=== PATIENT | female | born 1990 | race Caucasian/White ===

== ENCOUNTER 2017-03-05 20:27 | Emergency (ER) | payer SELFPAY ==
[2017-03-05] MEDS ORDERED: Sodium Chloride 0.9% 10 ML Syringe FLUSH PRN (20:35)
[2017-03-05] MEDS ORDERED: Sodium Chloride 0.9% 2.5 ML Syringe FLUSH PRN (20:35)
[2017-03-05] MEDS ORDERED: Ketorolac 30 MG/ML SDV IVPUSH ONE (20:35)
[2017-03-05] MEDS ORDERED: LORazepam 2 MG/ML MDV IVPUSH ONE (20:40)
--- NOTE | 2017-03-05 20:47 | EDM.PDOC ---
ED HPI RENAL/ - General Chief Complaint: Abdominal Pain Stated Complaint: BACK PAIN/abdominal pain Time Seen by Provider: 03/05/17 20:29 Source of Information: Reports: Patient History Limitations: Reports: No limitations - History of Present Illness INITIAL COMMENTS - FREE TEXT/NARRATIVE: HISTORY AND PHYSICAL: History of present illness: [27-year-old female with a history of chronic intermittent low back pain and no prior abdominal history or prior kidney stone now presents emergency room complaining of left low back pain over the last hour and a half. Patient states the pain is "radiating to her abdomen. "She never had a kidney stone. Denies any change in her bowel and bladder habits. She does not have any abdominal tenderness or pain in the abdomen with movement. Pain is worse with movement. Denies spinal pain. No fevers chills sweats or shaking chills. Patient denies as she is currently on her period and period is normal for her.] Patient states both hands and feet are tingling and her breathing rate represents slight tachypnea on arrival with an obvious contributory component of anxiety. Review of systems: As per history of present illness and below otherwise all systems reviewed and negative. Past medical history: As per history of present illness and as reviewed below otherwise noncontributory. Surgical history: As per history of present illness and as reviewed below otherwise noncontributory. Social history: No reported history of drug or alcohol abuse. Family history: As per history of present illness and as reviewed below otherwise noncontributory. Physical exam: Anxious-appearing obese patient alert and communicative conversing with her eyes closed. Mild tachypnea HEENT: Atraumatic, normocephalic, pupils reactive, negative for conjunctival pallor or scleral icterus, mucous membranes moist, throat clear, neck supple, nontender, trachea midline. Lungs: Clear to auscultation, breath sounds equal bilaterally, chest nontender. Heart: S1S2, regular, negative for clicks, rubs, or JVD. Abdomen: Soft, nondistended, nontender. Negative for masses or hepatosplenomegaly. Negative for costovertebral tenderness. Pelvis: Stable nontender. Left lumbar mild soft tissue tenderness. No CVA tenderness. No spinal tenderness. No skin changes. Nontender abdomen Genitourinary: Deferred. Rectal: Deferred. Extremities: Atraumatic, negative for cords or calf pain. Neurovascular unremarkable. Neuro: Awake, alert, oriented. Cranial nerves grossly unremarkable. Cerebellum unremarkable. Motor and sensory unremarkable throughout. Exam nonfocal. Diagnostics: [CT urinary tract without] Therapeutics: [Toradol given for back pain suspected to be musculoskeletal and Ativan administered or obvious anxiety manifestions] Impression: [Low back pain Hyperventilation syndrome Anxiety] Plan: [Patient's pain control treatment signs and symptoms consistent with suspected ureterolithiasis and ureteral colic. CT with 1 mm stone at UVJ. Patient smiling and asymptomatic on reevaluation after CT consistent with suspected passage into the bladder of this very small stone. No evidence of UTI. No further workup or treatment indicated. Vital signs stable. Patient agrees with outpatient followup and strict return precautions given] Definitive disposition and diagnosis as appropriate pending reevaluation and review of above. - Related Data Allergies/ADRs: Allergies Allergy/AdvReac Type Severity Reaction Status Date / Time No Known Allergies Allergy Verified 03/05/17 20:33 Home Meds: Home Meds Butalb/Acetaminophen/Caffeine [Gmeysc-[id number] 50-325-40] 4 tab PO QID 02/16 [History] Cholecalciferol (Vitamin D3) [Optimal D3] 50,000 unit PO DAILY 03/05/17 [History ] NIFEdipine [Nifedipine ER] 30 mg PO DAILY 03/05/17 [History] Norethindrone AC-Eth Estradiol [Junel 1 mg-20 Mcg Tablet] 1 tab PO DAILY [History] Omeprazole Magnesium [Prilosec Otc] 20 mg PO DAILY 03/05/17 [History] Promethazine [Phenergan] 25 mg PO Q4H 03/05/17 [History] SUMAtriptan Succinate [Imitrex] 100 mg PO DAILY 03/05/17 [History] Spironolactone [Aldactone] 50 mg PO BID 03/05/17 [History] metFORMIN HCl [Metformin HCl] 1,000 mg PO BID 03/05/17 [History] Social & Family History - Tobacco Use Smoking Status *Q: Never Smoker - Recreational Drug Use Recreational Drug Use: No ED ROS GENERAL - Review of Systems Review Of Systems: See Below (Per history of present illness) ED EXAM, RENAL/ - Physical Exam Exam: See Below (Per history of present illness) Course - Vital Signs Last Recorded V/S: Last Vital Signs Temp 36.4 C 03/05/17 23:04 Pulse 76 03/05/17 23:04 Resp 18 03/05/17 23:04 BP 119/72 03/05/17 23:04 Pulse Ox 100 03/05/17 23:04 - Orders/Labs/Meds Orders: Active Orders 24 hr Category Date Time Status Abdomen Pelvis wo Cont [CT] Stat Exams 03/05/17 20:36 Taken Peripheral IV Insertion Adult [OM.PC] Stat Oth 03/05/17 20:35 Ordered Labs: Laboratory Tests 03/05/17 03/05/17 03/05/17 Range/Units 20:37 20:37 21:00 WBC 12.45 H (4.0-11.0) K/uL RBC 4.77 (4.30-5.90) M/uL Hgb 13.2 (12.0-16.0) g/dL Hct 40.1 (36.0-46.0) % MCV 84.1 (80.0-98.0) fL MCH 27.7 (27.0-32.0) pg MCHC 32.9 (31.0-37.0) g/dL RDW Std Deviation 38.4 (28.0-62.0) fl RDW Coeff of Mariola 13 (11.0-15.0) % Plt Count 426 H (150-400) K/uL MPV 8.80 (7.40-12.00) fL Neut % (Auto) 47.4 L (48.0-80.0) % Lymph % (Auto) 41.7 H (16.0-40.0) % [place] % (Auto) 9.5 (0.0-15.0) % Eos % (Auto) 1.1 (0.0-7.0) % Baso % (Auto) 0.3 (0.0-1.5) % Neut # (Auto) 5.9 H (1.4-5.7) K/uL Lymph # (Auto) 5.2 H (0.6-2.4) K/uL [place] # (Auto) 1.2 H (0.0-0.8) K/uL Eos # (Auto) 0.1 (0.0-0.7) K/uL Baso # (Auto) 0.0 (0.0-0.1) K/uL Nucleated RBC % 0.0 /100WBC Nucleated RBCs # 0 K/uL Sodium 141 (136-146) mmol/L Potassium 3.5 (3.5-5.1) mmol/L Chloride 107 (98-110) mmol/L Carbon Dioxide 20 L (21-31) mmol/L BUN 12 (6.0-23.0) mg/dL Creatinine 0.8 (0.6-1.5) mg/dL Est Cr Clr Drug Dosing 88.93 mL/min Estimated GFR (MDRD) > 60.0 ml/min Glucose 102 (60-110) mg/dL Calcium 9.6 (8.8-10.8) mg/dL Total Bilirubin 0.4 (0.1-1.5) mg/dL AST 27 (5-40) IU/L ALT 56 H (8-54) IU/L Alkaline Phosphatase 113 (40-150) Total Protein 7.9 (6.0-8.0) g/dL Albumin 4.2 (3.5-5.0) g/dL Globulin 3.7 H (2.0-3.5) g/dL Albumin/Globulin Ratio 1.1 L (1.3-2.8) Lipase 28 (7-80) U/L Urine Color Urine Appearance Urine pH (5.0-8.0) Ur Specific [place] (1.001-1.035) Urine Protein (NEGATIVE) mg/dL Urine Glucose (UA) (NEGATIVE) mg/dL Urine Ketones (NEGATIVE) mg/dL Urine Occult Blood (NEGATIVE) Urine Nitrite (NEGATIVE) Urine Bilirubin (NEGATIVE) Urine Ictotest Urine Urobilinogen (<2.0) EU/dL Ur Leukocyte Esterase (NEGATIVE) Urine RBC (0-2/HPF) Urine WBC (0-5/HPF) Ur Epithelial Cells (NONE-FEW) Urine Bacteria (NEGATIVE) Urine HCG, Qual NEGATIVE (NEGATIVE) 03/05/17 Range/Units 22:55 WBC (4.0-11.0) K/uL RBC (4.30-5.90) M/uL Hgb (12.0-16.0) g/dL Hct (36.0-46.0) % MCV (80.0-98.0) fL MCH (27.0-32.0) pg MCHC (31.0-37.0) g/dL RDW Std Deviation (28.0-62.0) fl RDW Coeff of Mariola (11.0-15.0) % Plt Count (150-400) K/uL MPV (7.40-12.00) fL Neut % (Auto) (48.0-80.0) % Lymph % (Auto) (16.0-40.0) % [place] % (Auto) (0.0-15.0) % Eos % (Auto) (0.0-7.0) % Baso % (Auto) (0.0-1.5) % Neut # (Auto) (1.4-5.7) K/uL Lymph # (Auto) (0.6-2.4) K/uL [place] # (Auto) (0.0-0.8) K/uL Eos # (Auto) (0.0-0.7) K/uL Baso # (Auto) (0.0-0.1) K/uL Nucleated RBC % /100WBC Nucleated RBCs # K/uL Sodium (136-146) mmol/L Potassium (3.5-5.1) mmol/L Chloride (98-110) mmol/L Carbon Dioxide (21-31) mmol/L BUN (6.0-23.0) mg/dL Creatinine (0.6-1.5) mg/dL Est Cr Clr Drug Dosing mL/min Estimated GFR (MDRD) ml/min Glucose (60-110) mg/dL Calcium (8.8-10.8) mg/dL Total Bilirubin (0.1-1.5) mg/dL AST (5-40) IU/L ALT (8-54) IU/L Alkaline Phosphatase (40-150) Total Protein (6.0-8.0) g/dL Albumin (3.5-5.0) g/dL Globulin (2.0-3.5) g/dL Albumin/Globulin Ratio (1.3-2.8) Lipase (7-80) U/L Urine Color DARK YELLOW Urine Appearance CLOUDY Urine pH 6.0 (5.0-8.0) Ur Specific [place] 1.025 (1.001-1.035) Urine Protein 100 (NEGATIVE) mg/dL Urine Glucose (UA) NEGATIVE (NEGATIVE) mg/dL Urine Ketones NEGATIVE (NEGATIVE) mg/dL Urine Occult Blood LARGE H (NEGATIVE) Urine Nitrite NEGATIVE (NEGATIVE) Urine Bilirubin SMALL H (NEGATIVE) Urine Ictotest NEGATIVE Urine Urobilinogen 0.2 (<2.0) EU/dL Ur Leukocyte Esterase NEGATIVE (NEGATIVE) Urine RBC 40-50 (0-2/HPF) Urine WBC 0-3 (0-5/HPF) Ur Epithelial Cells OCCASIONAL (NONE-FEW) Urine Bacteria FEW (NEGATIVE) Urine HCG, Qual (NEGATIVE) Meds: Medications Discontinued Medications Generic Name Dose Route Start Last Admin Trade Name Freq PRN Reason Stop Dose Admin Sodium Chloride 1,000 mls @ 999 mls/hr 03/05/17 22:07 03/05/17 22:09 Normal Saline IV 03/05/17 23:07 999 mls/hr .Bolus ONE Administration Ketorolac Tromethamine 30 mg 03/05/17 20:35 03/05/17 20:42 Toradol IVPUSH 03/05/17 20:36 30 mg ONETIME ONE Administration Lorazepam 0.5 mg 03/05/17 20:40 03/05/17 20:46 Ativan IVPUSH 03/05/17 20:41 0.5 mg ONETIME ONE Administration Ondansetron HCl 4 mg 03/05/17 21:19 03/05/17 21:22 Zofran IVPUSH 03/05/17 21:20 4 mg ONETIME ONE Administration Sodium Chloride 10 ml 03/05/17 20:35 03/05/17 20:42 Saline Flush FLUSH 10 ml ASDIRECTED PRN Administration Keep Vein Open Sodium Chloride 2.5 ml 03/05/17 20:35 03/05/17 20:43 Saline Flush FLUSH 2.5 ml ASDIRECTED PRN Administration Keep Vein Open Departure - Departure Time of Disposition: 23:38 Disposition: Home, Self-Care 01 Condition: good Clinical Impression: Ureterolithiasis, Ureteral colic Instructions: Renal Colic, [id number], Kidney Stones, [id number] Referrals: PCP,None [Primary Care Provider] - Forms: ED Department Discharge Additional Instructions: Your history and findings today suggested that you were passing a kidney stone and this was confirmed by your CAT scan. You have no signs of urine infection in your kidney stones was 1 mm and early in your bladder at the time of imaging. Given that this is a very small stone in your symptoms have resolved is very likely that the stone has passed into your bladder and will pass out your urethra without any difficulty. Drink plenty of fluids and take 800 mg of ibuprofen every 6 hours. Followup with your Dr. for reevaluation and referral to urology as needed. Your CAT scan showed an incidental finding could be the result of something called medullary nephrocalcinosis or it could have just been a result of the concentrated urine which he clearly had on arrival to the emergency department you've been given a copy of your CAT scan to followup and discuss this with your primary care Dr. return immediately for new severe or worsening symptoms - My Orders Last 24 Hours: My Active Orders 03/05/17 20:35 Peripheral IV Insertion Adult [OM.PC] Stat 03/05/17 20:36 Abdomen Pelvis wo Cont [CT] Stat - Assessment/Plan Last 24 Hours: My Active Orders 03/05/17 20:35 Peripheral IV Insertion Adult [OM.PC] Stat 03/05/17 20:36 Abdomen Pelvis wo Cont [CT] Stat
[2017-03-05 21:11] LABS: CHLORIDE,CL 107 mmol/L (98-110); SODIUM,NA 141 mmol/L (136-146)
[2017-03-05] MEDS ORDERED: Ondansetron 4 MG/2 ML SDV IVPUSH ONE (21:19)
[2017-03-05] MEDS ORDERED: Sodium Chloride 0.9% 1,000 ML IV ONE (22:07)
[2017-03-05 23:05] VITALS: BP 119/72
--- NOTE | 2017-03-06 16:12 | CT ---
EXAM DATE: 03/05/17 PATIENT'S AGE: 27 Patient: JESUS JEFEFRSON Facility: [place], [place] Site . Site : 1992 Study: CT Abdomen/Pelvis WO CONT [id number]/4/2017 9:50:54 PM Ordering Physician: Arturo Alexis Final Report: INDICATION: ABD PAIN, N/V TECHNIQUE: CT abdomen and pelvis without contrast. COMPARISON: None FINDINGS: Lower chest: Unremarkable. Liver: Unremarkable. Spleen: Unremarkable. Pancreas: Unremarkable. Gallbladder and bile ducts: Cholecystectomy. Kidneys: 1 mm calculus just proximal to the left ureterovesicular junction with minimal left-sided hydroureter/hydronephrosis. Increased attenuation within the renal pyramids bilaterally. Adrenal glands: Unremarkable. GI tract: Unremarkable. Appendix is normal. Vascular structures: Unremarkable. Lymph nodes: Unremarkable. Miscellaneous: Unremarkable. No free air or significant free fluid. Pelvic Organs: Unremarkable. Bones: Unremarkable for age. IMPRESSION: 1 mm calculus just proximal to the left ureterovesicular junction with minimal left-sided hydroureter/hydronephrosis. Increased attenuation within the renal pyramids bilaterally. 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 Alternatively, this could represent concentrated urine. Dictated by Reynaldo Song MD @ 03/05/2017 10:02:10 PM Dictated by: Reynaldo Song MD @ 03/05/2017 22:05:34 (Electronic Signature) Report Signed by Proxy. [facility]
== END 2017-03-05 23:59 | disposition home or self-care (01) ==
LOC: MW.ED 20:27
DX: N13.2 Hydronephrosis with renal and ureteral calculous obstruction (principal); F45.8 Other somatoform disorders; Z79.899 Other long term (current) drug therapy
CPT/HCPCS: 74176; 80053; 81001; 81025; 83690; 85025; 96361; 96374; 96375; 99284; J1885; J2060; J2405; J7040

== ENCOUNTER → 2017-03-06 | Outpatient (CLI) | payer BC ==
--- NOTE | 2017-03-06 15:06 | CT ---
EXAMINATION: Non contrast CT head. Coronal and sagittal reformats. HISTORY: Migraine FINDINGS: No evidence of intra or extra axial hemorrhage, mass, midline shift, hydrocephalus or edema. No hypoattenuation changes in the major vascular territories to suggest acute infarct. No abnormal intracranial calcifications are detected. No evidence of substantial vascular calcifica tions. Paranasal sinuses and mastoid air cells are well aerated without substantial findings. The orbits a nd globes are symmetric. Pituitary fossa appears unremarkable. Calvarium is intact. No evidence of skull fracture. IMPRESSION: No acute intracranial findings.
== END ==
LOC: MW.DI 13:47
PROVIDERS: ATTEND Family Medicine
DX: G43.909 Migraine, unspecified, not intractable, without status migrainosus (principal)
CPT/HCPCS: 70450; 70450-26

== ENCOUNTER 2017-09-10 11:47 | Day surgery (SDC) | payer BC ==
[~2017-09-10 11:47] MED LIST: Lactated Ringers 1,000 ML IV SCH
[2017-09-10] MEDS ORDERED: Lidocaine 2% 5 ML SDV ONE (11:51)
[2017-09-10] MEDS ORDERED: fentaNYL 100 MCG/2 ML SDV ONE (11:51)
[2017-09-10] MEDS ORDERED: Propofol 200 MG/20 ML SDV ONE ×2 (11:51→13:36)
[2017-09-10] MEDS ORDERED: Midazolam 1 MG/ML 2 ML SDV ONE (11:52)
--- NOTE | 2017-09-10 12:01 | PCM.PREANE ---
Preanesthetic Assessment - Anesthesia/Transfusion/Family Hx Anesthesia History: Prior Anesthesia Without Reaction Family History of Anesthesia Reaction: No Transfusion History: No Prior Transfusion(s) - Review of Systems General: No Symptoms Pulmonary: No Symptoms Cardiovascular: No Symptoms Gastrointestinal: No Symptoms Neurological: No Symptoms Other: Reports: None - Physical Assessment NPO Status Date: 09/09/17 O2 Sat by Pulse Oximetry: 98 Respiratory Rate: 16 Vital Signs: Last Vital Signs Temp 36.5 C 09/10/17 11:52 Pulse 80 09/10/17 11:52 Resp 16 09/10/17 11:52 BP 114/65 09/10/17 11:52 Pulse Ox 98 09/10/17 11:52 ASA Class: 2 Mental Status: Alert & Oriented x3 Airway Class: Mallampati = 2 Dentition: Reports: Normal Dentition ROM/Head Extension: Full Lungs: Clear to Auscultation, Normal Respiratory Effort Cardiovascular: Regular Rate, Regular Rhythm - Allergies Allergies/Adverse Reactions: Allergies Allergy/AdvReac Type Severity Reaction Status Date / Time No Known Allergies Allergy Verified 09/07/17 12:17 - Acknowledgements Anesthesia Type Planned: MAC Pt an Appropriate Candidate for the Planned Anesthesia: Yes Alternatives and Risks of Anesthesia Discussed w Pt/Guardian: Yes Pt/Guardian Understands and Agrees with Anesthesia Plan: Yes Additional Comments: PMH: PCOS, ADD, A Rhinitis PreAnesthesia Questionnaire HEENT History: Reports: Allergic Rhinitis Cardiovascular History: Reports: None Respiratory History: Reports: None Gastrointestinal History: Reports: GERD Genitourinary History: Reports: Renal Calculus Other Genitourinary History: kidney stones in March, [employer] 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: Reports: Polycystic Ovaries Other OB/BYN History: takes Metformin for PCOS Musculoskeletal History: Reports: Arthritis, Back Pain, Chronic, Fracture Other Musculoskeletal History: hx of fx left arm Neurological History: Reports: Migraines, Other (See Below) Other Neuro History: hx of cluster headaches, hx of motion sickness Psychiatric History: Reports: ADHD Other Psychiatric History: does not take medication Endocrine/Metabolic History: Reports: Obesity/BMI 30+ Hematologic History: Reports: None Oncologic (Cancer) History: Reports: None Dermatologic History: Reports: None - Infectious Disease History Infectious Disease History: Reports: None - Past Surgical History HEENT Surgical History: Reports: Oral Surgery Other HEENT Surgeries/Procedures: wisdom teeth GI Surgical History: Reports: Cholecystectomy - SUBSTANCE USE Smoking Status *Q: Never Smoker Recreational Drug Use History: No - HOME MEDS Home Medications: Home Meds Promethazine [Phenergan] 25 mg PO Q4H PRN 03/05/17 [History] metFORMIN HCl [Metformin HCl] 500 mg PO BID 03/05/17 [History] ZOLMitriptan [Zolmitriptan Odt] 1 tab SL ASDIRECTED PRN 09/07/17 [History] - CURRENT (IN HOUSE) MEDS Current Meds: Current Medications Lactated Ringer's (Ringers, Lactated) 1,000 mls @ 125 mls/hr IV ASDIRECTED PAWAN Last Admin: 09/10/17 11:56 Dose: 125 mls/hr Discontinued Medications Fentanyl (Sublimaze) Confirm Administered Dose 100 mcg .ROUTE .STK-MED ONE Stop: 09/10/17 11:52 Lidocaine (Xylocaine-Mpf 2%) Confirm Administered Dose 5 ml .ROUTE .STK-MED ONE Stop: 09/10/17 11:52 Midazolam HCl (Versed 1 Mg/Ml) Confirm Administered Dose 2 mg .ROUTE .STK-MED ONE Stop: 09/10/17 11:53 Propofol (Diprivan 20 Ml) Confirm Administered Dose 400 mg .ROUTE .STK-MED ONE Stop: 09/10/17 11:52
--- NOTE | 2017-09-10 14:00 | PCM.OPNOTE ---
- General Post-Op/Procedure Note Date of Surgery/Procedure: 09/10/17 Operative Procedure(s): egd w bx Findings: see dict [id number] Pre Op Diagnosis: gerd Post-Op Diagnosis: same Anesthesia Technique: Moderate Sedation Primary Surgeon: Cornelius Matamoros Pathology: egd bx Complications: None Condition: Good
[2017-09-10 14:32] VITALS: BP 104/60
--- NOTE | 2017-09-10 14:34 | PCM.POSTAN ---
POST ANESTHESIA ASSESSMENT - MENTAL STATUS Mental Status: Alert, Oriented - RESPIRATORY Respiratory Status: Respiratory Rate WNL, Airway Patent, O2 Saturation Stable - CARDIOVASCULAR CV Status: Pulse Rate WNL, Blood Pressure Stable - GASTROINTESTINAL GI Status: No Symptoms - POST OP HYDRATION Hydration Status: Adequate & Stable
--- NOTE | 2017-09-10 14:35 | PCM48HPAN ---
Post Anesthesia Note - EVALUATION WITHIN 48HRS OF ANESTHETIC Vital Signs in Normal Range: Yes Patient Participated in Evaluation: Yes Respiratory Function Stable: Yes Airway Patent: Yes Cardiovascular Function Stable: Yes Hydration Status Stable: Yes Pain Control Satisfactory: Yes Nausea and Vomiting Control Satisfactory: Yes Mental Status Recovered: Yes
--- NOTE | 2017-09-10 21:11 | OR ---
SURGEON: Cornelius Matamoros MD DATE OF PROCEDURE: 09/10/2017 PREOPERATIVE DIAGNOSIS: Acid reflux. POSTOPERATIVE DIAGNOSIS: Acid reflux. PROCEDURES PERFORMED: EGD with biopsy. DESCRIPTION OF PROCEDURE: EGD: The patient was taken to the endoscopy room, and with the [employer] CONSULTANT, Diprivan was administered. A well-lubricated EGD scope was gently inserted through the oropharynx, down the esophagus, passing through the gastroesophageal junction, into the stomach. The mucosa was examined upon the passage. Any etiology will be noted. Once in the stomach, we continued to advance to the distal antrum, passed through the pylorus into the second portion of the duodenum. Again, the mucosa was examined for any abnormality and etiology. The scope was then retrieved back to the stomach and then retroflexed to look at the fundus of the stomach. If a biopsy was indicated, we will biopsy the antrum, body, and gastroesophageal junction. The air will be sucked out while the scope is retrieved to reduce the patient's discomfort. The patient tolerated the procedure well. There were no intraoperative complications. Dr. Matamoros was present through the whole procedure. Prior to surgery, a time-out had been called, the patient identified, procedure identified and antibiotic administered. FINDINGS: 1. The patient is easily sedated with LE[employer] CONSULTANT and Diprivan. The patient is soundly snoring. 2. The patient's oropharynx and proximal esophagus are free of disease. No stricture, ulceration, or inflammation. Distal esophagus at GE junction at 40 shows very minimal salmon-color change. Suggests very minimal acid reflux. Stomach rugae are normal in appearance, and there is no bile, food, blood. Antrum is a little bit inflamed, very mild, and duodenum was grossly normal. 3. The scope was retrieved back to the stomach. On retroflexed look at the fundus of stomach, there is no hiatal hernia. Biopsy done at antrum, body, and GE junction at 40, and sucked out the air while scope pulling out. NONA / MARICEL /[id number]
== END 2017-09-10 14:52 | disposition home or self-care (01) ==
LOC: MW.SDS 11:47
PROVIDERS: ATTEND Surgery
DX: K29.50 Unspecified chronic gastritis without bleeding (principal); K21.0 Gastro-esophageal reflux disease with esophagitis; E66.9 Obesity, unspecified; E28.2 Polycystic ovarian syndrome; Z79.84 Long term (current) use of oral hypoglycemic drugs; Z68.30 Body mass index [BMI] 30.0-30.9, adult; Z90.49 Acquired absence of other specified parts of digestive tract; Z79.899 Other long term (current) drug therapy; Z98.890 Other specified postprocedural states
CPT/HCPCS: 43239; 81025; J2250; J3010; J7120; 88305; 88312; J2704

== ENCOUNTER 2018-06-26 19:23 | Emergency (ER) | payer BC, OTHER ==
--- NOTE | 2018-06-26 19:37 | EDM.PDOC ---
ED HPI GENERAL MEDICAL PROBLEM - General Chief Complaint: CREDENTIALER Problem Stated Complaint: MISCARRIAGE Time Seen by Provider: 06/26/18 19:30 - History of Present Illness INITIAL COMMENTS - FREE TEXT/NARRATIVE: HISTORY AND PHYSICAL: History of present illness: Patient is a 28-year-old female was brought to 7 weeks who presents concern of vaginal bleeding she had some mild cramping denies trauma or other concern Review of systems: As per history of present illness and below otherwise all systems reviewed and negative. Past medical history: As per history of present illness and as reviewed below otherwise noncontributory. Surgical history: As per history of present illness and as reviewed below otherwise noncontributory. Social history: No reported history of drug or alcohol abuse. Family history: As per history of present illness and as reviewed below otherwise noncontributory. Physical exam: HEENT: Atraumatic, normocephalic, pupils reactive, negative for conjunctival pallor or scleral icterus, mucous membranes moist, throat clear, neck supple, nontender, trachea midline. Lungs: Clear to auscultation, breath sounds equal bilaterally, chest nontender. Heart: S1S2, regular, negative for clicks, rubs, or JVD. Abdomen: Soft, nondistended, nontender. Negative for masses or hepatosplenomegaly. Negative for costovertebral tenderness. Pelvis: Stable nontender. Genitourinary: Deferred. Rectal: Deferred. Extremities: Atraumatic, negative for cords or calf pain. Neurovascular unremarkable. Neuro: Awake, alert, oriented. Cranial nerves II through XII unremarkable. Cerebellum unremarkable. Motor and sensory unremarkable throughout. Exam nonfocal. Diagnostics: CBC CMP ABO Rh quantitative beta pelvic ultrasound Therapeutics: RhoGAM per blood bank Impression: #1 first trimester bleeding Definitive disposition and diagnosis as appropriate pending reevaluation and review of above. - Related Data Allergies Allergy/AdvReac Type Severity Reaction Status Date / Time No Known Allergies Allergy Verified 06/26/18 19:59 Home Meds: Home Meds . [No Known Home Meds] 06/26/18 [History] Past Medical History HEENT History: Reports: Allergic Rhinitis Cardiovascular History: Reports: None Respiratory History: Reports: None Gastrointestinal History: Reports: GERD Genitourinary History: Reports: Renal Calculus Other Genitourinary History: kidney stones in March, CREDENTIALER History: Reports: Polycystic Ovaries Other CREDENTIALER History: takes Metformin for PCOS Musculoskeletal History: Reports: Arthritis, Back Pain, Chronic, Fracture Other Musculoskeletal History: hx of fx left arm Neurological History: Reports: Migraines, Other (See Below) Other Neuro History: hx of cluster headaches, hx of motion sickness Psychiatric History: Reports: ADHD Other Psychiatric History: does not take medication Endocrine/Metabolic History: Reports: Obesity/BMI 30+ Hematologic History: Reports: None Oncologic (Cancer) History: Reports: None Dermatologic History: Reports: None - Infectious Disease History Infectious Disease History: Reports: None - Past Surgical History HEENT Surgical History: Reports: Oral Surgery Other HEENT Surgeries/Procedures: wisdom teeth GI Surgical History: Reports: Cholecystectomy Social & Family History - Family History Family Medical History: Noncontributory - Caffeine Use Caffeine Use: Reports: Coffee, Soda ED ROS GENERAL - Review of Systems Review Of Systems: ROS reveals no pertinent complaints other than HPI. ED EXAM, GENERAL - Physical Exam Exam: See Below (dictation) Course - Vital Signs Last Recorded V/S: Last Vital Signs Temp 36.5 C 06/26/18 19:23 Pulse 98 06/26/18 19:23 Resp 18 06/26/18 19:23 BP 141/69 H 06/26/18 19:23 Pulse Ox 98 06/26/18 19:23 - Orders/Labs/Meds Orders: Active Orders 24 hr Category Date Time Status OB 1st Tri Sgl 1st Gest [US] Stat Exams 06/26/18 19:34 Taken UA W/MICROSCOPIC [URIN] Stat Lab 06/26/18 19:50 Ordered Labs: Laboratory Tests 06/26/18 06/26/18 06/26/18 Range/Units 19:48 19:48 19:48 WBC 12.65 H (4.0-11.0) K/uL RBC 4.62 (4.30-5.90) M/uL Hgb 13.0 (12.0-16.0) g/dL Hct 38.8 (36.0-46.0) % MCV 84.0 (80.0-98.0) fL MCH 28.1 (27.0-32.0) pg MCHC 33.5 (31.0-37.0) g/dL RDW Std Deviation 40.6 (28.0-62.0) fl RDW Coeff of Mariola 13 (11.0-15.0) % Plt Count 325 (150-400) K/uL MPV 8.70 (7.40-12.00) fL Neut % (Auto) 74.8 (48.0-80.0) % Lymph % (Auto) 15.4 L (16.0-40.0) % [place] % (Auto) 8.6 (0.0-15.0) % Eos % (Auto) 1.0 (0.0-7.0) % Baso % (Auto) 0.2 (0.0-1.5) % Neut # (Auto) 9.5 H (1.4-5.7) K/uL Lymph # (Auto) 2.0 (0.6-2.4) K/uL [place] # (Auto) 1.1 H (0.0-0.8) K/uL Eos # (Auto) 0.1 (0.0-0.7) K/uL Baso # (Auto) 0.0 (0.0-0.1) K/uL Nucleated RBC % 0.0 /100WBC Nucleated RBCs # 0 K/uL Sodium 135 L (136-145) mmol/L Potassium 3.6 (3.5-5.1) mmol/L Chloride 101 (98-107) mmol/L Carbon Dioxide 25.9 (21.0-32.0) mmol/L BUN 7 (7.0-18.0) mg/dL Creatinine 0.8 (0.6-1.0) mg/dL Est Cr Clr Drug Dosing 84.28 mL/min Estimated GFR (MDRD) > 60.0 ml/min Glucose 91 (74-106) mg/dL Calcium 9.6 (8.5-10.1) mg/dL Total Bilirubin 0.3 (0.2-1.0) mg/dL AST 19 (15-37) IU/L ALT 42 (14-63) IU/L Alkaline Phosphatase 95 (46-116) U/L Total Protein 7.3 (6.4-8.2) g/dL Albumin 3.4 (3.4-5.0) g/dL Globulin 3.9 H (2.0-3.5) g/dL Albumin/Globulin Ratio 0.9 L (1.3-2.8) HCG, Quant 09102.0 mIU/mL Urine Color Urine Appearance Urine pH (5.0-8.0) Ur Specific [place] (1.001-1.035) Urine Protein (NEGATIVE) mg/dL Urine Glucose (UA) (NEGATIVE) mg/dL Urine Ketones (NEGATIVE) mg/dL Urine Occult Blood (NEGATIVE) Urine Nitrite (NEGATIVE) Urine Bilirubin (NEGATIVE) Urine Ictotest Urine Urobilinogen (<2.0) EU/dL Ur Leukocyte Esterase (NEGATIVE) Urine RBC (0-2/HPF) Urine WBC (0-5/HPF) Ur Epithelial Cells (NONE-FEW) Urine Bacteria (NEGATIVE) Blood Type A NEGATIVE 06/26/18 Range/Units 19:50 WBC (4.0-11.0) K/uL RBC (4.30-5.90) M/uL Hgb (12.0-16.0) g/dL Hct (36.0-46.0) % MCV (80.0-98.0) fL MCH (27.0-32.0) pg MCHC (31.0-37.0) g/dL RDW Std Deviation (28.0-62.0) fl RDW Coeff of Mariola (11.0-15.0) % Plt Count (150-400) K/uL MPV (7.40-12.00) fL Neut % (Auto) (48.0-80.0) % Lymph % (Auto) (16.0-40.0) % [place] % (Auto) (0.0-15.0) % Eos % (Auto) (0.0-7.0) % Baso % (Auto) (0.0-1.5) % Neut # (Auto) (1.4-5.7) K/uL Lymph # (Auto) (0.6-2.4) K/uL [place] # (Auto) (0.0-0.8) K/uL Eos # (Auto) (0.0-0.7) K/uL Baso # (Auto) (0.0-0.1) K/uL Nucleated RBC % /100WBC Nucleated RBCs # K/uL Sodium (136-145) mmol/L Potassium (3.5-5.1) mmol/L Chloride (98-107) mmol/L Carbon Dioxide (21.0-32.0) mmol/L BUN (7.0-18.0) mg/dL Creatinine (0.6-1.0) mg/dL Est Cr Clr Drug Dosing mL/min Estimated GFR (MDRD) ml/min Glucose (74-106) mg/dL Calcium (8.5-10.1) mg/dL Total Bilirubin (0.2-1.0) mg/dL AST (15-37) IU/L ALT (14-63) IU/L Alkaline Phosphatase (46-116) U/L Total Protein (6.4-8.2) g/dL Albumin (3.4-5.0) g/dL Globulin (2.0-3.5) g/dL Albumin/Globulin Ratio (1.3-2.8) HCG, Quant mIU/mL Urine Color RED Urine Appearance SLT CLOUDY Urine pH 6.0 (5.0-8.0) Ur Specific [place] 1.025 (1.001-1.035) Urine Protein 30 (NEGATIVE) mg/dL Urine Glucose (UA) NEGATIVE (NEGATIVE) mg/dL Urine Ketones NEGATIVE (NEGATIVE) mg/dL Urine Occult Blood LARGE H (NEGATIVE) Urine Nitrite NEGATIVE (NEGATIVE) Urine Bilirubin SMALL H (NEGATIVE) Urine Ictotest NEGATIVE Urine Urobilinogen 0.2 (<2.0) EU/dL Ur Leukocyte Esterase TRACE (NEGATIVE) Urine RBC TOO NUMEROUS TO CT H (0-2/HPF) Urine WBC 0-3 (0-5/HPF) Ur Epithelial Cells OCCASIONAL (NONE-FEW) Urine Bacteria FEW (NEGATIVE) Blood Type Departure - Departure Time of Disposition: 21:07 Disposition: Home, Self-Care 01 Condition: Good Clinical Impression: Threatened - Discharge Information *PRESCRIPTION DRUG MONITORING PROGRAM REVIEWED*: Not Applicable *COPY OF PRESCRIPTION DRUG MONITORING REPORT IN PATIENT HAYDEN: Not Applicable Forms: ED Department Discharge Additional Instructions: The following information is given to patients seen in the emergency department who are being discharged to home. This information is to outline your options for follow-up care. We provide all patients seen in our emergency department with a follow-up referral. The need for follow-up, as well as the timing and circumstances, are variable depending upon the specifics of your emergency department visit. If you don't have a primary care physician on staff, we will provide you with a referral. We always advise you to contact your personal physician following an emergency department visit to inform them of the circumstance of the visit and for follow-up with them and/or the need for any referrals to a consulting specialist. The emergency department will also refer you to a specialist when appropriate. This referral assures that you have the opportunity for followup care with a specialist. All of these measure are taken in an effort to provide you with optimal care, which includes your followup. Under all circumstances we always encourage you to contact your private physician who remains a resource for coordinating your care. When calling for followup care, please make the office aware that this follow-up is from your recent emergency room visit. If for any reason you are refused follow-up, please contact the [facility] emergency department at and asked to speak to the emergency department charge nurse. 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
[2018-06-26 20:42] LABS: CHLORIDE,CL 101 mmol/L (98-107); SODIUM,NA 135 mmol/L (136-145)
[2018-06-26 22:06] VITALS: BP 116/73
[2018-06-26] MEDS: Rho(D) Immune Globulin 300 MCG/2 ML Syringe IM ONE ×2 (22:07→22:51)
--- NOTE | 2018-06-28 12:11 | US ---
EXAM DATE: 06/26/18 PATIENT'S AGE: 28 Patient: JESUS ANTHONY Facility: [place], [place] Site . Site : 1990 Study: US OB Pelvis [id number]/[id number] 8:20:16 PM Ordering Physician: Doctor Wan Final Report: INDICATION: . Bleeding. Last menstrual period is 05/06/2018. Estimated gestational age based on last menstrual period is 7 weeks 2 days with an EDC of 02/10/2019 FINDINGS: Early OB ultrasound was performed. There is a twin gestation seen. Twin A: The mean sac diameter 1.77 cm which corresponds to a 6 week 5 day gestation. There is an embryo seen with a crown-rump length measuring 0.75 cm which corresponds to a gestational age of 6 weeks 5 days. Cardiac activity seen at a rate of 129 beats per minute. Twin B: The mean sac diameter measures 1.61 cm which corresponds to a 6 week 3 day gestation. There is an embryo seen with a crown-rump length measuring 0.92 cm which corresponds to 7 weeks 0 day gestation. There is cardiac activity seen at a rate of 155 beats per minute. IMPRESSION: Living twin gestation as described above. Dictated by Arpan Gonzalez MD @ 06/26/2018 8:43:03 PM Dictated by: Arpan Gonzalez MD @ 06/26/2018 20:43:09 (Electronic Signature) Report Signed by Proxy. REJI
== END 2018-06-26 22:18 | disposition home or self-care (01) ==
LOC: MW.ED 19:23
DX: O20.0 Threatened abortion (principal); E66.9 Obesity, unspecified; Z3A.01 Less than 8 weeks gestation of pregnancy
CPT/HCPCS: 36415; 76801; 80053; 81001; 84702; 85025; 86850; 86900; 86901; 99284; J2792; J2791

== ENCOUNTER 2019-07-20 02:07 | Emergency (ER) | payer OTHER ==
--- NOTE | 2019-07-20 02:40 | EDM.PDOC ---
ED HPI GENERAL MEDICAL PROBLEM - General Chief Complaint: ENT Problem Stated Complaint: SORE THROAT Time Seen by Provider: 07/20/19 02:25 - History of Present Illness INITIAL COMMENTS - FREE TEXT/NARRATIVE: HISTORY AND PHYSICAL: History of present illness: The patient is a 29-year-old female with multiple episodes of tonsillitis and strep throat in the past but still has her tonsils and presents with complaints of sore throat and aching that her tonsils were swollen. Patient has not had fever chills chest pain shortness of breath vomiting or diarrhea and no abdominal complaints. She has no history of mononucleosis. He is able to eat and drink Review of systems: As per history of present illness and below otherwise all systems reviewed and negative. Past medical history: As per history of present illness and as reviewed below otherwise noncontributory. Surgical history: As per history of present illness and as reviewed below otherwise noncontributory. Social history: No reported history of drug or alcohol abuse. Family history: As per history of present illness and as reviewed below otherwise noncontributory. Physical exam: General: Well-developed well-nourished female who is nontoxic and voice is normal on my evaluation without breathlessness or hoarseness. Vital signs are noted by me HEENT: Atraumatic, normocephalic, pupils reactive, negative for conjunctival pallor or scleral icterus, mucous membranes moist, throat clear, neck supple, nontender, trachea midline. Is no nuchal rigidity and there is some shoddy anterior cervical adenopathy no posterior adenopathy. Tonsils are enlarged mildly and there are no exudates but there is erythema and uvula is midline Lungs: Clear to auscultation, breath sounds equal bilaterally, chest nontender. Heart: S1S2, regular and rhythm no overt murmurs Abdomen: Soft, nondistended, nontender. NABS Pelvis: Stable nontender. Genitourinary: Deferred. Rectal: Deferred. Extremities: Atraumatic, no edema or leg asymmetry Neurovascular unremarkable. Neuro: Awake, alert, oriented. Cranial nerves II through XII unremarkable. Cerebellum unremarkable. Motor and sensory unremarkable throughout. Exam nonfocal. Diagnostics: [] Therapeutics: [] Impression: Tonsillitis Definitive disposition and diagnosis as appropriate pending reevaluation and review of above. throat Pain Score (Numeric/FACES): 4 - Related Data Allergies Allergy/AdvReac Type Severity Reaction Status Date / Time No Known Allergies Allergy Verified 07/20/19 02:17 Home Meds: Home Meds . 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: Reports: Polycystic Ovaries Other YARDER ENGINEER History: takes Metformin for PCOS Musculoskeletal History: Reports: Arthritis, Back Pain, Chronic, Fracture Other Musculoskeletal History: hx of fx left arm Neurological History: Reports: Migraines, Other (See Below) Other Neuro History: hx of cluster headaches, hx of motion sickness Psychiatric History: Reports: ADHD Other Psychiatric History: does not take medication Endocrine/Metabolic History: Reports: Obesity/BMI 30+ Hematologic History: Reports: None Oncologic (Cancer) History: Reports: None Dermatologic History: Reports: None - Infectious Disease History Infectious Disease History: Reports: None - Past Surgical History HEENT Surgical History: Reports: Oral Surgery Other HEENT Surgeries/Procedures: wisdom teeth GI Surgical History: Reports: Cholecystectomy Female Surgical History: Reports: Section Social & Family History - Family History Family Medical History: Noncontributory - Tobacco Use Smoking Status *Q: Never Smoker - Caffeine Use Caffeine Use: Reports: Coffee, Soda - Recreational Drug Use Recreational Drug Use: No ED ROS GENERAL - Review of Systems Review Of Systems: ROS reveals no pertinent complaints other than HPI. ED EXAM, GENERAL - Physical Exam Exam: See Below (See dictation) Course - Vital Signs Last Recorded V/S: Last Vital Signs Temp 35.8 C 07/20/19 02:11 Pulse 89 07/20/19 02:11 Resp 18 07/20/19 02:11 BP 119/78 07/20/19 02:11 Pulse Ox 97 07/20/19 02:11 Departure - Departure Time of Disposition: 02:39 Disposition: Home, Self-Care 01 Condition: Good Clinical Impression: Tonsillitis - Discharge Information Referrals: Lindsay Bailey DO [Primary Care Provider] - Additional Instructions: The following information is given to patients seen in the emergency department who are being discharged to home. This information is to outline your options for follow-up care. We provide all patients seen in our emergency department with a follow-up referral. The need for follow-up, as well as the timing and circumstances, are variable depending upon the specifics of your emergency department visit. If you don't have a primary care physician on staff, we will provide you with a referral. We always advise you to contact your personal physician following an emergency department visit to inform them of the circumstance of the visit and for follow-up with them and/or the need for any referrals to a consulting specialist. The emergency department will also refer you to a specialist when appropriate. This referral assures that you have the opportunity for followup care with a specialist. All of these measure are taken in an effort to provide you with optimal care, which includes your followup. Under all circumstances we always encourage you to contact your private physician who remains a resource for coordinating your care. When calling for followup care, please make the office aware that this follow-up is from your recent emergency room visit. If for any reason you are refused follow-up, please contact the [facility] emergency department at and ask to speak to the emergency department charge nurse. [facility] Primary care- [place] [address] Push hydration and use antibiotics, amoxicillin, that you have been given from [facility] until they're finished. Please call and schedule a follow-up appointment with your provider or one of hours for reevaluation and further care and return to ER as needed and as discussed the counter meds such as Tylenol and ibuprofen for pain and fevers
[2019-07-20 02:46] VITALS: BP 118/78; PULSE 88
== END 2019-07-20 02:45 | disposition home or self-care (01) ==
LOC: MW.ED 02:07
DX: J03.90 Acute tonsillitis, unspecified (principal)
CPT/HCPCS: 99282; 99283

== ENCOUNTER 2020-01-24 20:23 | Emergency (ER) | payer OTHER ==
[2020-01-24 20:34] VITALS: BP 113/81; PULSE 68
--- NOTE | 2020-01-24 20:35 | EDM.PDOC ---
ED HPI GENERAL MEDICAL PROBLEM - General Chief Complaint: Lower Extremity Injury/Pain Stated Complaint: BOTH LEGS ARE PURPLE FROM THE KNEE DOWN Time Seen by Provider: 01/24/20 20:34 Source of Information: Reports: Patient History Limitations: Reports: No Limitations - History of Present Illness INITIAL COMMENTS - FREE TEXT/NARRATIVE: Patient is a 30-year-old female who is complaining of having discoloration to both thighs anteriorly and laterally. This been going on for approximately 4 days. Patient denies any change in warmth or color to either extremity. She is complaining of occasional achy pain that does not seem to be worse with ambulation. Not had previously similar symptoms. Patient has no new clothing that may be causing this. Denies any fever chills or any pelvic pain or dysuria. She has no hematuria. She has been taking nothing for current symptoms. She has no other complaints Duration: Day(s): (4) Location: Reports: Lower Extremity, Left, Lower Extremity, Right Quality: Reports: Ache Severity: Mild Improves with: Reports: None Worsens with: Reports: None Associated Symptoms: Reports: No Other Symptoms - Related Data Allergies Allergy/AdvReac Type Severity Reaction Status Date / Time No Known Allergies Allergy Verified 01/24/20 20:52 Home Meds: Home Meds . 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: Reports: Polycystic Ovaries Other GROUP LEADER History: takes Metformin for PCOS Musculoskeletal History: Reports: Arthritis, Back Pain, Chronic, Fracture Other Musculoskeletal History: hx of fx left arm Neurological History: Reports: Migraines, Other (See Below) Other Neuro History: hx of cluster headaches, hx of motion sickness Psychiatric History: Reports: ADHD Other Psychiatric History: does not take medication Endocrine/Metabolic History: Reports: Obesity/BMI 30+ Hematologic History: Reports: None Oncologic (Cancer) History: Reports: None Dermatologic History: Reports: None - Infectious Disease History Infectious Disease History: Reports: None - Past Surgical History HEENT Surgical History: Reports: Oral Surgery Other HEENT Surgeries/Procedures: wisdom teeth GI Surgical History: Reports: Cholecystectomy Female Surgical History: Reports: Section Social & Family History - Family History Family Medical History: Noncontributory - Caffeine Use Caffeine Use: Reports: Coffee, Soda Review of Systems - Review of Systems Review Of Systems: Comprehensive ROS is negative, except as noted in HPI. ED EXAM, GENERAL - Physical Exam Exam: See Below Free Text/Narrative:: Exam: See Below Exam Limited By: No Limitations Head: Atraumatic Neck: Normal Inspection. No: Carotid Bruit, Lymphadenopathy (R) Respiratory/Chest: No Respiratory Distress, Lungs Clear, Normal Breath Sounds, No Accessory Muscle Use. No: Chest Non-Tender Cardiovascular: Normal Peripheral Pulses, Regular Rate, Rhythm, No Edema, No JVD GI/Abdominal: Normal Bowel Sounds, Tender. No: Non-Tender, Splenomegaly Back Exam: Normal Inspection. No: CVA Tenderness (R) Extremities: Nontender. Patient does have discoloration and abnormal pattern on her anterior and lateral thighs. Lower extremity otherwise has no change in warmth or color. Equal bounding pulses in her lower extremities. Capillary refill 3 seconds both legs. No: No Pedal Edema Neurological: Alert, Oriented, Normal Cognition Psychiatric: Normal Affect Skin Exam: Warm Lymphatic: No Adenopathy Course - Vital Signs Text/Narrative:: With an alcohol wipe discoloration was removed without any difficulty. No further work-up or treatments being indicated at this point. Last Recorded V/S: Last Vital Signs Temp 36.2 C 01/24/20 20:30 Pulse 68 01/24/20 20:30 Resp 18 01/24/20 20:30 BP 113/81 01/24/20 20:30 Pulse Ox 98 01/24/20 20:30 Departure - Departure Time of Disposition: 21:08 Disposition: Home, Self-Care 01 Condition: Good Clinical Impression: Normal exam - Discharge Information Referrals: Lindsay Bailey DO [Primary Care Provider] - Forms: ED Department Discharge Additional Instructions: The following information is given to patients seen in the emergency department who are being discharged to home. This information is to outline your options for follow-up care. We provide all patients seen in our emergency department with a follow-up referral. The need for follow-up, as well as the timing and circumstances, are variable depending upon the specifics of your emergency department visit. If you don't have a primary care physician on staff, we will provide you with a referral. We always advise you to contact your personal physician following an emergency department visit to inform them of the circumstance of the visit and for follow-up with them and/or the need for any referrals to a consulting specialist. The emergency department will also refer you to a specialist when appropriate. This referral assures that you have the opportunity for follow-up care with a specialist. All of these measure are taken in an effort to provide you with optimal care, which includes your follow-up. Under all circumstances we always encourage you to contact your private physician who remains a resource for coordinating your care. When calling for follow-up care, please make the office aware that this follow-up is from your recent emergency room visit. If for any reason you are refused follow-up, please contact the [facility] Emergency Department at and asked to speak to the emergency department charge nurse. Sepsis Event Note - Focused Exam Vital Signs: Vital Signs Temp Pulse Resp BP Pulse Ox 01/24/20 20:30 36.2 C 68 18 113/81 98 Date Exam was Performed: 01/24/20 Time Exam was Performed: 21:05
== END 2020-01-24 21:16 | disposition home or self-care (01) ==
LOC: MW.ED 20:23
DX: Z00.00 Encounter for general adult medical examination without abnormal findings (principal); E66.9 Obesity, unspecified; Z68.41 Body mass index [BMI] 40.0-44.9, adult; Z79.84 Long term (current) use of oral hypoglycemic drugs; E28.2 Polycystic ovarian syndrome
CPT/HCPCS: 99283